=== PATIENT | female | born 1990 | race African-American/Black ===

== ENCOUNTER 2017-07-02 15:44 | Observation (INO) | payer SELFPAY ==
[~2017-07-02] VITALS: Ht 175.3 cm; Wt 103.0 kg
[2017-07-02 16:09] VITALS: BP 135/79; PULSE 105; RESP 18; TEMP 98.3; O2SAT 100
[2017-07-02] MEDS ORDERED: SODIUM CHLOR 0.9% 1000 ML INJ 1,000 ML IV ONE (16:14)
[2017-07-02] MEDS ORDERED: ONDANSETRON HCL 4 MG/2 ML VIAL IVP ONE (16:15)
[2017-07-02] MEDS ORDERED: HYDROmorphone HCL PF 1 MG/ML VIAL IVS ONE (16:15)
[2017-07-02] MEDS ORDERED: SODIUM CHLORIDE 0.9% FLUSH 10 ML FLUSH IVF PRN (16:15)
--- NOTE | 2017-07-02 16:23 | PD ---
HPI Chief Complaint: Seizure Time Seen by Provider: 16:14 Travel History International Travel<30 days: No Contact w/Intl Traveler<30days: No Traveled to known affect area: No History of Present Illness HPI 27-year-old female patient with history of sickle cell disease, glioblastoma status post resection in September, seizures, currently visiting from [place], presents to the ER today because she states that she has had several days' history of nausea, vomiting, not feeling well, and not able to keep her seizure medications down, has been having pains in her joints, and had a seizure today. She had talked her neurologist in [place] was told to come to the ER since she is doing poorly. Pain is currently rated a 9 out of 10. Modifying Factors: None Associated Signs & Symptoms: Nausea, vomiting, seizures, joint pains and swelling Risk Factors: History of seizures, history of brain tumor status post resection , sickle cell disease PFSH Past Medical History Cancer: Yes (BRAIN) Chemotherapy: Yes (LAST 2 WEEKS AGO) Medical other: Yes (LIVER DYSFUNCTIONS) Seizures: Yes (EPILEPSY) Sickle Cell Disease: Yes ?: Not LMP: 06/10/17 Past Surgical History Appendectomy: Yes Cholecystectomy: Yes Genitourinary Surgery: Yes (RENAL STENT) Neurologic Surgery: Yes (SENIOR RADIATION THERAPIST SHUNT/REMOVAL, CRANIOTOMY) Social History Alcohol Use: No Tobacco Use: No Substance Use: No Allergies-Medications (Allergen,Severity, Reaction): Coded Allergies: Iodinated Contrast- Oral and IV Dye (Verified Allergy, Unknown, 07/02/17) NSAIDS (Non-Steroidal Anti-Inflamma (Verified Allergy, Unknown, 07/02/17) Penicillins (Verified Allergy, Unknown, 07/02/17) ciprofloxacin (Verified Allergy, Unknown, 07/02/17) divalproex sodium (Verified Allergy, Unknown, 07/02/17) fosphenytoin (Verified Allergy, Unknown, 07/02/17) ketorolac (Verified Allergy, Unknown, 07/02/17) meperidine (Verified Allergy, Unknown, 07/02/17) morphine (Verified Allergy, Unknown, 07/02/17) phenytoin (Verified Allergy, Unknown, 07/02/17) Reported Meds & Prescriptions Reported Meds & Active Scripts Active Reported Phenergan (Promethazine HCl) 25 Mg Tablet 25 Mg PO Q6H PRN Dilaudid (Hydromorphone HCl) 4 Mg Tab 4 Mg PO Q4H PRN Xanax (Alprazolam) 2 Mg Tab 2 Mg PO Q6HR PRN Ambien (Zolpidem Tartrate) 10 Mg Tab 10 Mg PO HS PRN Nortriptyline (Nortriptyline HCl) 25 Mg Cap 25 Mg PO HS Dexamethasone 4 Mg Tab 4 Mg PO Q8HR Hydrea (Hydroxyurea) 500 Mg Cap 1,000 Mg PO DAILY Keppra (Levetiracetam) 500 Mg Tab 1,500 Mg PO BID Review of Systems Except as stated in HPI: all other systems reviewed are Neg Physical Exam Narrative GENERAL: Well-developed young -[place] female patient currently in mild distress. Awake and oriented 3. SKIN: Focused skin assessment warm/dry. HEAD: Atraumatic. Normocephalic. EYES: Pupils equal and round. No scleral icterus. No injection or drainage. ENT: No nasal bleeding or discharge. Mucous membranes pink and moist. NECK: Trachea midline. No JVD. CARDIOVASCULAR: Regular rate and rhythm. No murmur appreciated. RESPIRATORY: No accessory muscle use. Clear to auscultation. Breath sounds equal bilaterally. GASTROINTESTINAL: Abdomen soft, non-tender, nondistended. Hepatic and splenic margins not palpable. MUSCULOSKELETAL: No obvious deformities. No clubbing. No cyanosis. No edema. NEUROLOGICAL: Awake and alert. No obvious cranial nerve deficits. Motor grossly within normal limits. Normal speech. PSYCHIATRIC: Appropriate mood and affect; insight and judgment normal. Data Data Last Documented VS Vital Signs Date Time Temp Pulse Resp B/P (MAP) Pulse Ox O2 Delivery O2 Flow Rate FiO2 07/02/17 16:09 98.3 105 18 135/79 (97) 100 Room Air Orders Orders C-Reactive Protein (Crp) (07/02/17 16:14) Complete Blood Count With Diff (07/02/17 16:14) Comprehensive Metabolic Panel (07/02/17 16:14) Retic Count (07/02/17 16:14) Urinalysis - C+S If Indicated (07/02/17 16:14) Blood Culture (07/02/17 16:14) Ecg Monitoring (07/02/17 16:14) Iv Access Insert/Monitor (07/02/17 16:14) Oximetry (07/02/17 16:14) Ondansetron Inj (Zofran Inj) (07/02/17 16:15) Sodium Chloride 0.9% Flush (Ns Flush) (07/02/17 16:15) Sodium Chlor 0.9% 1000 Ml Inj (Ns 1000 M (07/02/17 16:14) Hydromorphone Pf Inj (Dilaudid Pf Inj) (07/02/17 16:15) Ct Brain W/O Iv Contrast(Rout) (07/02/17 16:14) Ed Urine Pregnancytest Poc (07/02/17 16:14) Vascular Access Team Consult/P PRN (07/02/17 16:29) Vascular Poc Ultrasound (07/02/17 ) Diphenhydramine Inj (Benadryl Inj) (07/02/17 17:15) Hydromorphone Pf Inj (Dilaudid Pf Inj) (07/02/17 18:00) Ondansetron Inj (Zofran Inj) (07/02/17 18:15) Levetiracetam Inj (Keppra Inj) (07/02/17 18:30) Admit Order (Ed Use Only) (07/02/17 19:07) Labs Laboratory Tests Test 07/02/17 16:25 07/02/17 17:15 Urine Color LIGHT-YELLOW Urine Turbidity CLEAR Urine pH 7.0 Urine Specific [place] 1.012 Urine Protein NEG mg/dL Urine Glucose (UA) NEG mg/dL Urine Ketones NEG mg/dL Urine Occult Blood MOD Urine Nitrite NEG Urine Bilirubin NEG Urine Urobilinogen LESS THAN 2.0 MG/DL Urine Leukocyte Esterase NEG Urine RBC 9 /hpf Urine WBC 1 /hpf Urine Squamous Epithelial Cells 4 /hpf Urine Mucus FEW /lpf Microscopic Urinalysis Comment CULT NOT INDICATED White Blood Count 15.9 TH/MM3 Red Blood Count 3.34 MIL/MM3 Hemoglobin 8.6 GM/DL Hematocrit 26.3 % Mean Corpuscular Volume 78.7 FL Mean Corpuscular Hemoglobin 25.9 PG Mean Corpuscular Hemoglobin Concent 32.9 % Red Cell Distribution Width 18.6 % Platelet Count 260 TH/MM3 Mean Platelet Volume 7.1 FL Neutrophils (%) (Auto) 79.3 % Lymphocytes (%) (Auto) 14.2 % Monocytes (%) (Auto) 6.2 % Eosinophils (%) (Auto) 0.2 % Basophils (%) (Auto) 0.1 % Neutrophils # (Auto) 12.6 TH/MM3 Lymphocytes # (Auto) 2.3 TH/MM3 Monocytes # (Auto) 1.0 TH/MM3 Eosinophils # (Auto) 0.0 TH/MM3 Basophils # (Auto) 0.0 TH/MM3 CBC Comment DIFF FINAL Differential Comment Reticulocyte Count 1.8 % Absolute Reticulocyte Count 59.1 MIL/L Blood Urea Nitrogen 17 MG/DL Creatinine 0.79 MG/DL Random Glucose 98 MG/DL Total Protein 6.3 GM/DL Albumin 2.8 GM/DL Calcium Level 8.0 MG/DL Alkaline Phosphatase 74 U/L Aspartate Amino Transf (AST/SGOT) 11 U/L Alanine Aminotransferase (ALT/SGPT) 13 U/L Total Bilirubin 0.3 MG/DL Sodium Level 139 MEQ/L Potassium Level 3.8 MEQ/L Chloride Level 105 MEQ/L Carbon Dioxide Level 28.0 MEQ/L Anion Gap 6 MEQ/L Estimat Glomerular Filtration Rate 105 ML/MIN C-Reactive Protein LESS THAN 0.29 MG/DL MDM Medical Decision Making Medical Screen Exam Complete: Yes Emergency Medical Condition: Yes Medical Record Reviewed: Yes Interpretation(s) Laboratory Tests Test 07/02/17 16:25 07/02/17 17:15 Urine Occult Blood MOD (NEG) Urine RBC 9 /hpf (0-3) Urine Mucus FEW /lpf (OCC) White Blood Count 15.9 TH/MM3 (4.0-11.0) Red Blood Count 3.34 MIL/MM3 (4.00-5.30) Hemoglobin 8.6 GM/DL (11.6-15.3) Hematocrit 26.3 % (35.0-46.0) Mean Corpuscular Volume 78.7 FL (80.0-100.0) Mean Corpuscular Hemoglobin 25.9 PG (27.0-34.0) Red Cell Distribution Width 18.6 % (11.6-17.2) Neutrophils (%) (Auto) 79.3 % (16.0-70.0) Neutrophils # (Auto) 12.6 TH/MM3 (1.8-7.7) Monocytes # (Auto) 1.0 TH/MM3 (0-0.9) Total Protein 6.3 GM/DL (6.4-8.2) Albumin 2.8 GM/DL (3.4-5.0) Calcium Level 8.0 MG/DL (8.5-10.1) Aspartate Amino Transf (AST/SGOT) 11 U/L (15-37) Differential Diagnosis Nausea, vomiting, seizures, joint pains: Sickle cell crisis versus gastroenteritis versus dehydration versus metabolic issues versus acute worsening of brain tumor versus ICH versus opiate withdrawal Narrative Course Patient does not appear in significant distress, has no photophobia, sitting in a lighted room without issues and has no meningeal signs. Her lab work does show some leukocytosis but she is afebrile, and with recent history of seizures is suspect that this is due to de-marginalization. She has a negative C- reactive protein. Reticulocyte counts are not significantly elevated. She has never been here before, states that she is from [place]. IV fluids and Dilaudid, Benadryl, Zofran was given to her initially. An hour later, she states that it is not giving her significant relief and additional doses of Dilaudid and Zofran were given in the ER. Considering the history of breakthrough seizures and the fact that she has not been able to take her own Keppra, Keppra bolus dose was given. She is allergic to many other seizure medications. CAT scan did not show any signs of acute processes. She has findings on CAT scan that indicates her previous craniotomy. She appears to not be doing well at home and at this point, my plan would be to admit her for further treatment. Case is discussed with Dr. Piña for admission. Diagnosis Primary Impression: Seizure Additional Impressions: Nausea and vomiting Sickle cell anemia with pain Admitting Information Admitting Physician Requests: Admit Connie Morin MD Jul 02, 2017 16:23
[2017-07-02] MEDS ORDERED: DEXA4TAB PO (16:36)
[2017-07-02] MEDS ORDERED: DILA4TAB10 PO (16:36)
[2017-07-02] MEDS ORDERED: NORT25CA PO (16:36)
[2017-07-02] MEDS ORDERED: HYDR500C PO (16:36)
[2017-07-02] MEDS ORDERED: PROM25TA10 PO (16:36)
[2017-07-02] MEDS ORDERED: AMBI10TA PO (16:36)
[2017-07-02] MEDS ORDERED: LEVE500 PO (16:36)
[2017-07-02] MEDS ORDERED: XANA2TAB2 PO (16:36)
[2017-07-02 17:06] LABS: BLOOD, URINE MOD (NEG); COMMENT (UR) CULT NOT INDICATED; CULTURE IF INDICATED CULT NOT INDICATED; GLUCOSE,URINE NEG (NEG); KETONE, URINE NEG (NEG); MUCUS URINE FEW /lpf (OCC); NITRITE,URINE NEG (NEG); SQUAMOUS EPITHELIAL CELL URINE 4 /hpf (0-5); URINE COLOR LIGHT-YELLOW (YELLW/STRAW)
[2017-07-02] MEDS ORDERED: diphenhydrAMINE HCL 50 MG/ML VIAL IV PUSH ONE (17:15)
[2017-07-02 17:57] LABS: AUTOMATED NEUTROPHIL # 12.6 TH/MM3 (1.8-7.7); BASOPHIL % 0.1 % (0.0-2.0); EOSINOPHIL % 0.2 % (0.0-4.0); HEMATOCRIT 26.3 % (35.0-46.0); HEMO FLAGS DIFF FINAL; LYMPH % 14.2 % (9.0-44.0); LYMPHOCYTE # 2.3 TH/MM3 (1.0-4.8); MEAN CELL VOLUME 78.7 FL (80.0-100.0); MEAN CORPUSCULAR HEMOGLOBIN 25.9 PG (27.0-34.0); MEAN CORPUSCULAR HGB CONC 32.9 % (32.0-36.0); MONO % 6.2 % (0.0-8.0); NEUT % 79.3 % (16.0-70.0); PLATELET COUNT 260 TH/MM3 (150-450); RED BLOOD COUNT 3.34 MIL/MM3 (4.00-5.30); RED CELL DISTRIBUTION WIDTH 18.6 % (11.6-17.2); RETIC % 1.8 % (0.4-3.0); REVIEW FLAG FINAL; WHITE BLOOD COUNT 15.9 TH/MM3 (4.0-11.0)
[2017-07-02] MEDS ORDERED: HYDROmorphone HCL PF 1 MG/ML VIAL IV PUSH ONE (18:00)
[2017-07-02 18:12] LABS: ALT (GPT) 13 U/L (10-53)
[2017-07-02 18:14] LABS: ALKALINE PHOSPHATASE 74 U/L (45-117); TOTAL BILIRUBIN ADULT 0.3 MG/DL (0.2-1.0)
[2017-07-02] MEDS ORDERED: ONDANSETRON HCL 4 MG/2 ML VIAL IV PUSH ONE (18:15)
[2017-07-02 18:16] LABS: ANION GAP 6 MEQ/L (5-15); AST (GOT) 11 U/L (15-37); BLOOD UREA NITROGEN 17 MG/DL (7-18); CHLORIDE 105 MEQ/L (98-107); GLOMERULAR FILTRATION RATE 105 ML/MIN (>89); SODIUM (NA) 139 MEQ/L (136-145)
[2017-07-02 18:17] LABS: POTASSIUM 3.8 MEQ/L (3.5-5.1)
--- NOTE | 2017-07-02 18:28 | RADRPT ---
EXAM DATE/TIME: 07/02/2017 17:25 [facility] COMPARISON: No previous studies available for comparison. INDICATIONS : Patient had seizure, history of seizures. RADIATION DOSE: 56.35 CTDIvol (mGy) MEDICAL HISTORY : Sickle cell disease. Seizures. brain cancer SURGICAL HISTORY : Craniotomy. ENCOUNTER: Initial ACUITY: 3 days PAIN SCALE: 5/10 LOCATION: cranial TECHNIQUE: Multiple contiguous axial images were obtained of the head. Using automated exposure control and adj ustment of the mA and/or kV according to patient size, radiation dose was kept as low as reasonably a chievable to obtain optimal diagnostic quality images. DICOM format image data is available electro nically for review and comparison. FINDINGS: There is an 11 mm parenchymal calcification within the right parietal lobe. Previous right parietal c raniotomy has been performed. No acute infarct is noted. There is no acute hemorrhage, midline shift or extra-axial fluid collections. The ventricles, sulci and cisterns are normal size shape and positi on for the patient's age. CONCLUSION: 1. 11 mm parenchymal calcification within the right parietal lobe with evidence of previous right par ietal craniotomy. 2. No acute infarct, acute hemorrhage, mass effect or extra axial fluid collections. You Bell MD on July 02, 2017 at 18:24 Board Certified Radiologist. This report was verified electronically.
[2017-07-02] MEDS ORDERED: levETIRAcetam INJ 500 MG in SODIUM CHLORIDE 0.9% INJ 100 ML IV ONE (18:30)
[2017-07-02 19:00] VITALS: BP 136/69; PULSE 104; RESP 18; O2SAT 100
[2017-07-02] MEDS ORDERED: SODIUM CHLOR 0.9% 1000 ML INJ 1,000 ML IV SCH (19:23)
[2017-07-02] MEDS ORDERED: ONDANSETRON HCL 4 MG/2 ML VIAL IVP PRN (19:30)
[2017-07-02] MEDS ORDERED: SODIUM CHLORIDE 0.9% FLUSH 10 ML FLUSH IV FLUSH PRN (19:30)
[2017-07-02] MEDS ORDERED: NALOXONE HCL 0.4 MG/ML AMP IV PUSH PRN (19:30)
[2017-07-02] MEDS ORDERED: METOCLOPRAMIDE HCL 10 MG/2 ML VIAL IV PUSH PRN (19:30)
[2017-07-02] MEDS ORDERED: traMADol HCL 50 MG TAB PO PRN (19:30)
[2017-07-02] MEDS ORDERED: SODIUM CHLORIDE 0.9% FLUSH 10 ML FLUSH IV FLUSH SCH (21:00)
== END 2017-07-02 21:50 | disposition left against medical advice (07) ==
LOC: NEPC 15:44 → NEDA 19:09
PROVIDERS: ADMIT Internal Medicine; ATTEND Internal Medicine
DX: G40.909 Epilepsy, unspecified, not intractable, without status epilepticus (principal); D57.1 Sickle-cell disease without crisis; R11.2 Nausea with vomiting, unspecified
CPT/HCPCS: 70450; 80053; 81001; 84703; 85025; 85044; 86140; 87040; 96361; 96365; 96375; 96376; 99285; G0378; J1170; J1200; J1953; J2405; J7030